=== PATIENT | female | born 1980 | race Caucasian/White ===

== ENCOUNTER 2017-10-19 08:40 | Day surgery (SDC) | payer BC ==
[~2017-10-19] VITALS: Ht 172.7 cm; Wt 65.3 kg
[~2017-10-19 08:40] MED LIST: PREN1TAB49 PO
[2017-10-19 09:51] LABS: HCG,QUAL RESULT NEGATIVE (NEGATIVE)
[2017-10-19] MEDS ORDERED: MIVACURIUM CHLORIDE 20 MG/10 ML VIAL (MIVACRON) INJ ONE (11:50)
[2017-10-19] MEDS ORDERED: NS 1000 ML BAG IV ONE (11:50)
[2017-10-19] MEDS ORDERED: ONDANSETRON HCL 4 MG/2 ML VIAL IVP ONE (11:50)
[2017-10-19] MEDS ORDERED: MIDAZOLAM HCL 5 MG/5 ML VIAL IVP ONE (11:50)
[2017-10-19] MEDS ORDERED: fentaNYL CITRATE/PF 100 MCG/2 ML AMP IVP ONE (11:50)
[2017-10-19] MEDS ORDERED: LR 1,000 ML IV.SOLN IV ONE (11:50)
[2017-10-19] MEDS ORDERED: KETOROLAC TROMETHAMINE 30 MG VIAL IVP ONE (11:50)
[2017-10-19] MEDS ORDERED: NS IRRIG SOLN 1000 ML IR ONE (11:50)
[2017-10-19] MEDS ORDERED: SEVOFLURANE 15 MIN GAS INH ONE (11:50)
[2017-10-19] MEDS ORDERED: LR 1,000 ML IV SCH (12:13)
[2017-10-19] MEDS ORDERED: METOCLOPRAMIDE HCL 10 MG/2 ML VIAL IVP PRN (12:15)
[2017-10-19] MEDS ORDERED: MORPHINE 4 MG/ML INJ. SYRINGE IVP PRN ×3 (12:15)
[2017-10-19] MEDS ORDERED: IBUPROFEN 800 MG TABLET PO PRN ×2 (12:45)
[2017-10-19] MEDS ORDERED: OXYCODONE/ACETAMINOPHEN 5-325 TABLET PO PRN ×4 (12:45→14:15)
[2017-10-19] MEDS ORDERED: ONDANSETRON HCL 4 MG/2 ML VIAL IVP PRN (12:45)
[2017-10-19 13:49] VITALS: BP_SYST 126
== END 2017-10-19 14:35 | disposition home or self-care (01) ==
LOC: SMU 08:40 → SDS 08:40
PROVIDERS: ATTEND Obstetrics & Gynecology
DX: N92.0 Excessive and frequent menstruation with regular cycle (principal); Z98.890 Other specified postprocedural states; J45.20 Mild intermittent asthma, uncomplicated; Z79.899 Other long term (current) drug therapy
CPT/HCPCS: 58563; 84703; 88305; J1885; J2250; J2405; J3010; J7030; J7120